=== PATIENT | female | born 1965 | race Caucasian/White ===

== ENCOUNTER 2016-11-27 10:59 | Observation (INO) | payer OTHER ==
[2016-11-27] VITALS (7 sets, daily range): BP systolic 128–154; BP diastolic 56–86; PULSE 83–124; RESP 16–20; TEMP 98.1–98.2; O2SAT 97–100
[~2016-11-27] VITALS: Ht 154.9 cm; Wt 50.0 kg
[2016-11-27] MEDS ORDERED: SODIUM CHLOR 0.9% 1000 ML INJ 1,000 ML IV SCH ×2 (11:36)
--- NOTE | 2016-11-27 11:39 | PD ---
HPI Chief Complaint: Psychiatric Symptoms Time Seen by Provider: 11:39 Travel History International Travel<30 days: No Contact w/Intl Traveler<30days: No Traveled to known affect area: No History of Present Illness HPI 51-year-old female with a history of pancreatitis, chronic pain, anxiety and depression presents to the emergency department for evaluation of abdominal pain , nausea, vomiting and diarrhea for 2 weeks. The patient states she is concerned that she is having another flareup of her pancreatitis. States that she previously was a heavy alcohol drinker which is what caused her pancreatitis but that she does not drink anymore. States that she's been unable to keep food or fluids down and has loose watery stools. She is also complaining of abdominal pain, generalized but worse in the left upper quadrant. Denies fever, chills, chest pain, shortness of breath, cough or cold symptoms, bloody stool, black stool. Prior abdominal surgeries include cholecystectomy and surgery for perforated gastric ulcer. She states she is typically taking medication for anxiety, insomnia and chronic pain however has been off of her medications for about 2 weeks because her doctor has not refilled them yet. PCP Dr. Sierra. She mentioned to nursing staff out front that something to the effect that she did not want to live anymore because she cannot sleep due to nausea and vomiting however she denies suicidal or homicidal ideations. PFSH Past Medical History Cancer: Yes (HX LEEP '94) Chest Pain: Yes (STATES HX OF NITRO SUBLINGUAL IN THE PAST) Diminished Hearing: No GERD: Yes Hiatal Hernia: Yes Psychiatric: Yes Immunizations Current: Yes Thyroid Disease: Yes (HYPOTHYROID) Menopausal: Yes : 4 Para: 4 Past Surgical History Section: Yes (1) Cholecystectomy: Yes Social History Alcohol Use: Yes (USUALY WEEKENDS 5 BEERS TONIGHT) Tobacco Use: Yes (1PPD) Substance Use: Yes (DRINKS BEER WHENEVER SHE HAS MONEY.) Allergies-Medications (Allergen,Severity, Reaction): Coded Allergies: Codeine (Verified Allergy, Unknown, Hives, 11/27/16) Reported Meds & Prescriptions Reported Meds & Active Scripts Active Review of Systems Except as stated in HPI: all other systems reviewed are Neg Physical Exam Narrative GENERAL: Well-nourished and well-developed female patient in no acute distress who is nontoxic appearing. SKIN: Warm and dry. HEAD: Normocephalic and atraumatic. EYES: No injection, drainage, or hyphema noted. PERRLA. EOMI. ENT: No nasal drainage noted. Oropharynx is clear. NECK: Supple and the trachea is midline. CARDIOVASCULAR: Regular rate and rhythm. RESPIRATORY: Breath sounds are equal bilaterally with no accessory muscle use, wheezing, rhonchi, or crackles. GASTROINTESTINAL: Generalized abdominal tenderness to palpation. No rebound tenderness or guarding. Abdomen is soft and nondistended. MUSCULOSKELETAL: No obvious deformities, swelling, cyanosis, or ecchymosis is present throughout the upper and lower extremities. Patient has full range of motion without any signs of neurovascular compromise. NEUROLOGICAL: Awake, alert, and oriented. Normal speech and gait. Cranial nerves are grossly intact. Data Data Last Documented VS Vital Signs Date Time Temp Pulse Resp B/P Pulse Ox O2 Delivery O2 Flow Rate FiO2 11/27/16 12:02 97 16 154/86 100 Room Air 11/27/16 11:01 98.2 Orders Complete Blood Count With Diff (11/27/16 11:36) Comprehensive Metabolic Panel (11/27/16 11:36) Lipase (11/27/16 11:36) Urinalysis - C+S If Indicated (11/27/16 11:36) Ct Abd/Pel W Iv Contrast(Rout) (11/27/16 11:36) Iv Access Insert/Monitor (11/27/16 11:36) Ecg Monitoring (11/27/16 11:36) Oximetry (11/27/16 11:36) Morphine Inj (Morphine Inj) (11/27/16 11:45) Ondansetron Inj (Zofran Inj) (11/27/16 11:45) Sodium Chlor 0.9% 1000 Ml Inj (Ns 1000 M (11/27/16 11:36) Sodium Chloride 0.9% Flush (Ns Flush) (11/27/16 11:45) Sodium Chlor 0.9% 1000 Ml Inj (Ns 1000 M (11/27/16 11:36) Ondansetron Inj (Zofran Inj) (11/27/16 13:15) Lorazepam Inj (Ativan Inj) (11/27/16 13:15) Iohexol 350 Inj (Omnipaque 350 Inj) (11/27/16 13:18) Admit Order (Ed Use Only) (11/27/16 14:07) Labs Laboratory Tests Test 11/27/16 11/27/16 11:30 11:40 White Blood Count 9.0 TH/MM3 Red Blood Count 5.05 MIL/MM3 Hemoglobin 16.0 GM/DL Hematocrit 46.9 % Mean Corpuscular Volume 92.7 FL Mean Corpuscular Hemoglobin 31.7 PG Mean Corpuscular Hemoglobin 34.2 % Concent Red Cell Distribution Width 13.8 % Platelet Count 344 TH/MM3 Mean Platelet Volume 8.9 FL Neutrophils (%) (Auto) 50.4 % Lymphocytes (%) (Auto) 42.3 % Monocytes (%) (Auto) 4.6 % Eosinophils (%) (Auto) 2.3 % Basophils (%) (Auto) 0.4 % Neutrophils # (Auto) 4.5 TH/MM3 Lymphocytes # (Auto) 3.8 TH/MM3 Monocytes # (Auto) 0.4 TH/MM3 Eosinophils # (Auto) 0.2 TH/MM3 Basophils # (Auto) 0.0 TH/MM3 CBC Comment DIFF FINAL Differential Comment Sodium Level 140 MEQ/L Potassium Level 3.6 MEQ/L Chloride Level 109 MEQ/L Carbon Dioxide Level 19.9 MEQ/L Anion Gap 11 MEQ/L Blood Urea Nitrogen 15 MG/DL Creatinine 0.71 MG/DL Estimat Glomerular Filtration 86 ML/MIN Rate Random Glucose 111 MG/DL Calcium Level 10.2 MG/DL Total Bilirubin 0.5 MG/DL Aspartate Amino Transf 32 U/L (AST/SGOT) Alanine Aminotransferase 104 U/L (ALT/SGPT) Alkaline Phosphatase 154 U/L Total Protein 7.7 GM/DL Albumin 4.7 GM/DL Lipase 424 U/L Urine Color YELLOW Urine Turbidity HAZY Urine pH 6.0 Urine Specific [place] GREATER THAN 1.050 Urine Protein 30 mg/dL Urine Glucose (UA) NEG mg/dL Urine Ketones 40 mg/dL Urine Occult Blood NEG Urine Nitrite NEG Urine Bilirubin NEG Urine Urobilinogen 4.0 MG/DL Urine Leukocyte Esterase TRACE Urine RBC 1 /hpf Urine WBC 5 /hpf Urine Squamous Epithelial 7 /hpf Cells Urine Bacteria OCC /hpf Urine Mucus MANY /lpf Microscopic Urinalysis Comment CULT NOT INDICATED MDM Medical Decision Making Medical Screen Exam Complete: Yes Emergency Medical Condition: Yes Differential Diagnosis Pancreatitis versus colitis versus gastroenteritis versus dehydration versus electrolyte abnormality versus opiate withdrawal Narrative Course 51-year-old female presents to the emergency department for evaluation of abdominal pain, nausea, vomiting and diarrhea for 2 weeks. Patient is afebrile. She is tachycardic with a heart rate of 124 bpm. Otherwise vital signs are within normal limits. She is reporting a history of pancreatitis and feels that this is a flareup of her pancreatitis. She also mentions she has been out of her oxycodone and anxiety medications for 2 weeks. She has generalized abdominal tenderness on examination however no peritoneal signs. IV access was obtained, labs were drawn and sent. Patient is placed on cardiac telemetry and pulse oximetry monitoring. Patient is measured IV fluids, Zofran and morphine. CBC shows elevated hemoglobin and hematocrit, likely secondary to hemoconcentration. CMP shows elevated LFTs and elevated lipase of 424. Urinalysis shows elevated specific gravity, 30 protein, 40 ketones, trace leukocyte esterase, occasional bacteria, many mucus. CT of the abdomen and pelvis shows mild prominence of the pancreatic duct measuring up to 4 mm with no definite stone or filling defect identified. There is no inflammatory change. Status post cholecystectomy with prominence of the intrahepatic and extrahepatic biliary system which may be a postsurgical finding. Mild and nonspecific nonobstructive bowel gas pattern which may represent a mild ileus and/or gastroenteritis. Moderate size hiatal hernia. Patient has required multiple doses of antiemetics. She still overall not feeling well. Her labs indicate that she is dehydrated. Patient will be admitted for intractable nausea, vomiting and abdominal pain in setting of chronic pancreatitis. I discussed the case with my attending physician Dr. Cherry who is aware of the patients history, physical examination findings, and treatment plan. Physician Communication Physician Communication I spoke with Dr. Raman resident who agrees to admit the patient to their service. Diagnosis Primary Impression: Intractable nausea and vomiting Qualified Code: R11.2 - Intractable vomiting with nausea, unspecified vomiting type Additional Impressions: Intractable abdominal pain Chronic pancreatitis Qualified Code: K86.1 - Chronic pancreatitis, unspecified pancreatitis type Mild dehydration Admitting Information Admitting Physician Requests: Kim Colby November 27, 2016 11:39
[2016-11-27] MEDS ORDERED: MORPHINE SULFATE 4 MG/ML INJ IV PUSH ONE (11:45)
[2016-11-27] MEDS ORDERED: SODIUM CHLORIDE 0.9% FLUSH 10 ML FLUSH IV FLUSH PRN ×2 (11:45→14:45)
[2016-11-27] MEDS ORDERED: ONDANSETRON HCL 4 MG/2 ML VIAL IVP ONE ×2 (11:45→13:15)
[2016-11-27 12:00] LABS: AUTOMATED NEUTROPHIL # 4.5 TH/MM3 (1.8-7.7); BASOPHIL % 0.4 % (0.0-2.0); EOSINOPHIL # 0.2 TH/MM3 (0-0.4); EOSINOPHIL % 2.3 % (0.0-4.0); HEMATOCRIT 46.9 % (35.0-46.0); HEMO FLAGS DIFF FINAL; LYMPH % 42.3 % (9.0-44.0); LYMPHOCYTE # 3.8 TH/MM3 (1.0-4.8); MEAN CELL VOLUME 92.7 FL (80.0-100.0); MEAN CORPUSCULAR HEMOGLOBIN 31.7 PG (27.0-34.0); MEAN CORPUSCULAR HGB CONC 34.2 % (32.0-36.0); MONO % 4.6 % (0.0-8.0); NEUT % 50.4 % (16.0-70.0); PLATELET COUNT 344 TH/MM3 (150-450); RED BLOOD COUNT 5.05 MIL/MM3 (4.00-5.30); RED CELL DISTRIBUTION WIDTH 13.8 % (11.6-17.2)
[2016-11-27 12:05] LABS: BACTERIA, URINE OCC /hpf; BLOOD, URINE NEG (NEG); COMMENT (UR) CULT NOT INDICATED; CULTURE IF INDICATED CULT NOT INDICATED; GLUCOSE,URINE NEG (NEG); KETONE, URINE 40 mg/dL (NEG); MUCUS URINE MANY /lpf (OCC); NITRITE,URINE NEG (NEG); SQUAMOUS EPITHELIAL CELL URINE 7 /hpf (0-5); URINE COLOR YELLOW (YELLW/STRAW)
[2016-11-27 12:19] LABS: ALT (GPT) 104 U/L (10-53); ANION GAP 11 MEQ/L (5-15); AST (GOT) 32 U/L (15-37); BICARBONATE 19.9 MEQ/L (21.0-32.0); BLOOD UREA NITROGEN 15 MG/DL (7-18); CHLORIDE 109 MEQ/L (98-107); GLOMERULAR FILTRATION RATE 86 ML/MIN (>89); POTASSIUM 3.6 MEQ/L (3.5-5.1); SODIUM (NA) 140 MEQ/L (136-145)
[2016-11-27 12:21] LABS: ALKALINE PHOSPHATASE 154 U/L (45-117); TOTAL BILIRUBIN ADULT 0.5 MG/DL (0.2-1.0)
[2016-11-27] MEDS ORDERED: LORazepam 2 MG/ML VIAL IV PUSH ONE (13:15)
[2016-11-27] MEDS ORDERED: IOHEXOL 350 MG/ML 10 ML VIAL (for RAD DIAG) IV ONE (13:18)
--- NOTE | 2016-11-27 13:45 | RADRPT ---
EXAM DATE/TIME: 11/27/2016 13:13 [facility] COMPARISON: No previous studies available for comparison. INDICATIONS : Patient complains of epigastric pain last 2 weeks with nausea. IV CONTRAST: 85 cc Omnipaque 350 (iohexol) IV ORAL CONTRAST: No oral contrast ingested. RADIATION DOSE: 9.96 CTDIvol (mGy) MEDICAL HISTORY : Pancreatitis. SURGICAL HISTORY : Cholecystectomy. ENCOUNTER: Initial ACUITY: 2 weeks PAIN SCALE: 6/10 LOCATION: Bilateral upper quadrant TECHNIQUE: Volumetric scanning of the abdomen and pelvis was performed. Using automated exposure control and ad justment of the mA and/or kV according to patient size, radiation dose was kept as low as reasonably achievable to obtain optimal diagnostic quality images. FINDINGS: LOWER LUNGS: The visualized lower lungs are clear. LIVER: Homogeneous density without lesion. The patient is status post cholecystectomy. There is mild promine nce of the intrahepatic and extrahepatic biliary system with no filling defects or mass identified. SPLEEN: Normal size without lesion. PANCREAS: Within normal limits. KIDNEYS: Normal in size and shape. There is no mass, stone or hydronephrosis. There is mild prominence of the pancreatic duct measuring up to 4 mm in diameter. There is no inflammatory change. ADRENAL GLANDS: Within normal limits. VASCULAR: There is no aortic aneurysm. BOWEL/MESENTERY: There is a moderate-sized hiatal hernia. There are multiple loops of nondilated air-containing small bowel several small air-fluid levels. There is no free air or fluid. Gas and stool are noted segmenta lly in the colon. No oral contrast was given limiting sensitivity. ABDOMINAL WALL: Within normal limits. RETROPERITONEUM: There is no lymphadenopathy. BLADDER: No wall thickening or mass. REPRODUCTIVE: Within normal limits. INGUINAL: There is no lymphadenopathy or hernia. MUSCULOSKELETAL: Within normal limits for patient age. CONCLUSION: 1. Mild prominence of the pancreatic duct measuring up to 4 mm with no definite stone or filling defe ct identified. There is no inflammatory change. 2. Status post cholecystectomy with prominence of the intrahepatic and extrahepatic Biliary system wh ich may be a postsurgical finding. 3. Mild and nonspecific, nonobstructive bowel gas pattern which may represent a mild ileus and/or gas troenteritis. 4. Moderate size hiatal hernia. Ravindra Styles MD on November 27, 2016 at 13:41 Board Certified Radiologist. This report was verified electronically.
--- NOTE | 2016-11-27 14:34 | HHI.HP ---
[facility] Service Family Medicine Primary Care Physician Miya Sierra MD Admission Diagnosis Intractable N/V, Intractable Abd Pain, Dehydration Diagnoses: International Travel<30 Days: No Contact w/Intl Traveler<30days: No Known Affected Area: No History of Present Illness Of note she is a very poor historian This a 51-year-old female with an extensive past mental history significant for pancreatitis, diverticulitis, hiatal hernia, chronic pain and anxiety and depression. She is presented for a 2 week history of nausea, vomiting, diarrhea and abdominal pain. She says that to half weeks ago she ran out of her pain meds and her PCP has not ordered her new ones. She feels that she started going through withdrawal at this point the withdrawals in her mind are over and now she is having an episode of her pancreatitis. She says that she is having difficulty eating or drinking anything. Her diarrhea stopped because she's been unable to eat for the last few days. She also has been unable to sleep at this timeframe. She feels like her muscles and bones ache all over her body. Her abdominal pain is mostly in her epigastric region. She says that morphine does not help with her pain but that Dilaudid does. She feels that the abdominal pain does worsen with eating. Patient had this time the stomach is were most her pain is located. She takes opiates consistently for her chronic bone pain. Denies any homicidal or suicidal ideation. Of note she claims to have no longer drink in many years Her PCP is Dr. Sierra who is currently managing her pain meds. (Turner Raman MD R2) Review of Systems Constitutional: COMPLAINS OF: Fatigue, Fever, Chills, Dizziness, Change in appetite (decreased), DENIES: Weight loss Endocrine: DENIES: Polyuria Eyes: DENIES: Diplopia, Double Vision Ears, nose, mouth, throat: DENIES: Hearing loss, Oral lesions, Throat pain, Hoarseness, Sinus Pain Respiratory: DENIES: Cough, Sputum production, Shortness of breath Cardiovascular: DENIES: Chest pain, Lower Extremity Edema Gastrointestinal: COMPLAINS OF: Abdominal pain, Diarrhea, Nausea, Vomiting, Anorexia, DENIES: Black stools, Bloody stools Genitourinary: DENIES: Dyspareunia, Urinary frequency, Dysuria Musculoskeletal: COMPLAINS OF: Joint pain, Muscle aches, Back pain, Neck pain Integumentary: DENIES: Abnormal pigmentation Hematologic/lymphatic: DENIES: Bruising Neurologic: COMPLAINS OF: Headache, DENIES: Abnormal gait, Seizures, Poor Balance Psychiatric: COMPLAINS OF: Anxiety, Depression, DENIES: Confusion (Turner Raman MD R2) Past Family Social History Past Medical History Pancreatitis Diverticulitits Hiatl hernia Migraines Chronic Pain Opiate dependence perforated ulcer Past Surgical History Ankle repair cholecystectomy wrist repair Reported Medications Reported Meds & Active Scripts Active (Turner Raman MD R2) Allergies: Coded Allergies: Codeine (Verified Allergy, Unknown, Hives, 11/27/16) Family History noncontributory Social History Live in [place] in a mobile home, with her boyfriend On Disability Have a dog Smoke a pack a day since 12 Quit drinking in 2003 Marijuana occasionally (Turner Raman MD R2) Physical Exam Vital Signs Vital Signs Date Time Temp Pulse Resp B/P Pulse Ox O2 Delivery O2 Flow Rate FiO2 11/27/16 12:02 97 16 154/86 100 Room Air 11/27/16 11:01 98.2 124 20 129/56 97 Physical Exam GENERAL: This is a well-nourished, well-developed patient, appears older than stated age in no apparent distress. SKIN: No rashes, ecchymoses or lesions. Cool and dry. HEAD: Atraumatic. Normocephalic. No temporal or scalp tenderness. EYES: Pupils equal round and reactive. Extraocular motions intact. No scleral icterus. No injection or drainage. ENT: Nose without bleeding, purulent drainage or septal hematoma. Throat without erythema, tonsillar hypertrophy or exudate. Uvula midline. Airway patent. Missing all of her teeth NECK: Trachea midline. No JVD or lymphadenopathy. Supple, nontender, no meningeal signs. CARDIOVASCULAR: Regular rate and rhythm without murmurs, gallops, or rubs. RESPIRATORY: Clear to auscultation. Breath sounds equal bilaterally. No wheezes , rales, or rhonchi. GASTROINTESTINAL: Abdomen soft, tender to palpation in epigastric region, nondistended. No rebound tenderness or guarding. No hepato-splenomegaly, or palpable masses. MUSCULOSKELETAL: Extremities without clubbing, cyanosis, or edema. No joint tenderness, effusion, or edema noted. No calf tenderness. Negative Homans sign bilaterally. NEUROLOGICAL: Awake and alert. Cranial nerves II through XII grossly intact. Motor and sensory grossly within normal limits. Normal speech. Laboratory Laboratory Tests Test 11/27/16 11/27/16 11:30 11:40 White Blood Count 9.0 Red Blood Count 5.05 Hemoglobin 16.0 Hematocrit 46.9 Mean Corpuscular Volume 92.7 Mean Corpuscular Hemoglobin 31.7 Mean Corpuscular Hemoglobin 34.2 Concent Red Cell Distribution Width 13.8 Platelet Count 344 Mean Platelet Volume 8.9 Neutrophils (%) (Auto) 50.4 Lymphocytes (%) (Auto) 42.3 Monocytes (%) (Auto) 4.6 Eosinophils (%) (Auto) 2.3 Basophils (%) (Auto) 0.4 Neutrophils # (Auto) 4.5 Lymphocytes # (Auto) 3.8 Monocytes # (Auto) 0.4 Eosinophils # (Auto) 0.2 Basophils # (Auto) 0.0 CBC Comment DIFF FINAL Differential Comment Sodium Level 140 Potassium Level 3.6 Chloride Level 109 Carbon Dioxide Level 19.9 Anion Gap 11 Blood Urea Nitrogen 15 Creatinine 0.71 Estimat Glomerular Filtration 86 Rate Random Glucose 111 Calcium Level 10.2 Total Bilirubin 0.5 Aspartate Amino Transf 32 (AST/SGOT) Alanine Aminotransferase 104 (ALT/SGPT) Alkaline Phosphatase 154 Total Protein 7.7 Albumin 4.7 Lipase 424 Urine Color YELLOW Urine Turbidity HAZY Urine pH 6.0 Urine Specific [place] GREATER THAN 1.050 Urine Protein 30 Urine Glucose (UA) NEG Urine Ketones 40 Urine Occult Blood NEG Urine Nitrite NEG Urine Bilirubin NEG Urine Urobilinogen 4.0 Urine Leukocyte Esterase TRACE Urine RBC 1 Urine WBC 5 Urine Squamous Epithelial 7 Cells Urine Bacteria OCC Urine Mucus MANY Microscopic Urinalysis Comment CULT NOT INDICATED (Turner Raman MD R2) Result Diagram: 11/27/16 1130 11/27/16 1130 Imaging Last Impressions Abdomen/Pelvis CT 11/27/16 1136 Signed Impressions: Service Date/Time: Sunday, November 27, 2016 13:13 - CONCLUSION: 1. Mild prominence of the pancreatic duct measuring up to 4 mm with no definite stone or filling defect identified. There is no inflammatory change. 2. Status post cholecystectomy with prominence of the intrahepatic and extrahepatic Biliary system which may be a postsurgical finding. 3. Mild and nonspecific, nonobstructive bowel gas pattern which may represent a mild ileus and/or gastroenteritis. 4. Moderate size hiatal hernia. Ravindra Styles MD (Turner Raman MD R2) Assessment and Plan Assessment and Plan This a 51-year-old female with an extensive past mental history significant for pancreatitis, diverticulitis, hiatal hernia, chronic pain and anxiety and depression. Being admitted for intractable vomiting and abdominal pain and UTI Code Status DNR Discussed Condition With wdw: Dr. Rich (Turner Raman MD R2) Attending Attestation THIS CASE WAS DISCUSSED WITH THE RESIDENT PHYSICIAN. I HAVE REVIEWED THE RECORD AND AGREE WITH THE ABOVE NOTE AND PLAN OF CARE WAS DISCUSSED. I HAVE AUTHORIZED THE ORDER FOR PLACEMENT IN OUT-PATIENT OBSERVATION STATUS. (Leo Rich MD) Problem List: (1) Intractable abdominal pain Status: Acute Plan: Patient is being admitted for intractable abdominal pain. She is on chronic opiates. Has been without her medications for treatment of weeks. Abdominal pain is likely due to withdrawal versus mild pancreatitis. Status post bolus 2. Lipase is mildly elevated at 424 * Admit to observation * Placed on CIWA protocol * Rally pack by mouth * IV fluids at 125 MLS per hour * Diet nothing by mouth * Dilaudid 1 mg IV every 4 hours when necessary pain 1-10 we'll transition to by mouth tomorrow (2) Intractable nausea and vomiting Status: Acute Plan: Patient is reporting intractable nausea and vomiting. She feels better with Zofran. * Zofran 4 mg IV every X hours when necessary nausea or vomiting * CBC, BMP ordered for the a.m. (3) Chronic pancreatitis Status: Acute Plan: Patient reports a history of chronic pancreatitis. * See plans above (4) Mild dehydration Status: Acute Plan: See fluid above (5) UTI (urinary tract infection) Status: Acute Plan: UA concerning for a urinary tract infection. She is afebrile white blood cell count is 9.0 * Ceftriaxone 1 g IV every 12 hours * Urine cultures pending (6) Nutrition, metabolism, and development symptoms Status: Acute Plan: Diet: Nothing by mouth we'll start diet as tolerated Fluids: IV 125 MLS per hour status post bolus 2 Out of bed ad chris. Vitals every 4 Monitor electrolytes replace accordingly Monitor I's and O's DVT prophylaxis with heparin and SCDs CODE STATUS: Full code Disposition: Improvement of abdominal pain and nausea vomiting resolution of dehydration (Turner Raman MD R2) Problem Qualifiers (1) Intractable nausea and vomiting: Qualified Code: R11.2 - Intractable vomiting with nausea, unspecified vomiting type (2) Chronic pancreatitis: Qualified Code: K86.1 - Chronic pancreatitis, unspecified pancreatitis type (3) UTI (urinary tract infection): Qualified Code: N30.00 - Acute cystitis without hematuria Turner Raman MD R2 November 27, 2016 14:34 Leo Rich MD November 28, 2016 17:54
[2016-11-27] MEDS ORDERED: ONDANSETRON HCL 4 MG/2 ML VIAL IV PRN (14:45)
[2016-11-27] MEDS ORDERED: MAGNESIUM HYDROXIDE SUSP 30 ML CUP PO PRN (15:00)
[2016-11-27] MEDS ORDERED: TEMAZEPAM 15 MG CAP PO PRN (15:00)
[2016-11-27] MEDS ORDERED: LORazepam 2 MG/ML VIAL IV PUSH PRN ×4 (15:00)
[2016-11-27] MEDS ORDERED: LORazepam 1 MG TAB PO PRN (15:00)
[2016-11-27] MEDS ORDERED: LORazepam 2 MG TAB PO PRN (15:00)
[2016-11-27] MEDS ORDERED: FLUMAZENIL 0.5 MG/5 ML VIAL IV PUSH PRN (15:00)
[2016-11-27] MEDS ORDERED: NALOXONE HCL 0.4 MG/ML AMP IV PRN (15:00)
[2016-11-27] MEDS: HEPARIN SODIUM - SQ 10,000 UNITS/ML VIAL SQ SCH (15:29)
[2016-11-27] MEDS: SODIUM CHLOR 0.9% 1000 ML INJ 1,000 ML IV SCH ×2 (15:29→23:30)
[2016-11-27] MEDS: HYDROmorphone HCL PF 1 MG/ML VIAL IV PRN ×2 (15:30→20:52)
[2016-11-27] MEDS ORDERED: cefTRIAXone INJ 1,000 MG in SODIUM CHLORIDE 0.9% INJ 100 ML IV SCH (16:00)
[2016-11-27] MEDS: NICOTINE 21 MG/24 HR PATCH T-DERMAL SCH (18:21)
[2016-11-27] MEDS: SODIUM CHLORIDE 0.9% FLUSH 10 ML FLUSH IV FLUSH SCH (20:52)
[2016-11-27] MEDS: REMOVE OLD PATCH T-DERMAL SCH (21:00)
[2016-11-28] MEDS: HEPARIN SODIUM - SQ 10,000 UNITS/ML VIAL SQ SCH ×2 (00:37→08:12)
[2016-11-28] MEDS: HYDROmorphone HCL PF 1 MG/ML VIAL IV PRN ×2 (01:24→06:43)
[2016-11-28 03:15] VITALS: BP 105/78; PULSE 86; RESP 17; TEMP 97.9; O2SAT 97
[2016-11-28] MEDS ORDERED: HYDROmorphone HCL PF 1 MG/ML VIAL IV PRN (07:15)
[2016-11-28] MEDS ORDERED: ACETAMINOPHEN/HYDROcodone 325 MG/10 MG TAB PO PRN (07:15)
[2016-11-28] MEDS ORDERED: ACETAMINOPHEN/HYDROcodone 325 MG/5 MG TAB PO PRN (07:15)
[2016-11-28 07:26] LABS: AUTOMATED NEUTROPHIL # 1.9 TH/MM3 (1.8-7.7); BASOPHIL % 0.7 % (0.0-2.0); EOSINOPHIL # 0.3 TH/MM3 (0-0.4); EOSINOPHIL % 4.2 % (0.0-4.0); HEMATOCRIT 36.7 % (35.0-46.0); LYMPH % 59.4 % (9.0-44.0); LYMPHOCYTE # 3.6 TH/MM3 (1.0-4.8); MEAN CELL VOLUME 92.2 FL (80.0-100.0); MEAN CORPUSCULAR HEMOGLOBIN 31.7 PG (27.0-34.0); MEAN CORPUSCULAR HGB CONC 34.4 % (32.0-36.0); MONO % 4.9 % (0.0-8.0); NEUT % 30.8 % (16.0-70.0); PLATELET COUNT 258 TH/MM3 (150-450); RED BLOOD COUNT 3.98 MIL/MM3 (4.00-5.30); RED CELL DISTRIBUTION WIDTH 13.5 % (11.6-17.2); WHITE BLOOD COUNT 6.1 TH/MM3 (4.0-11.0)
[2016-11-28 07:28] LABS: HEMO FLAGS AUTO DIFF
[2016-11-28 08:05] LABS: BICARBONATE 24.1 MEQ/L (21.0-32.0); POTASSIUM 3.3 MEQ/L (3.5-5.1)
[2016-11-28] MEDS: NICOTINE 21 MG/24 HR PATCH T-DERMAL SCH (08:12)
[2016-11-28 08:13] LABS: SCAN/DIFF AUTO DIFF CONFIRMED
[2016-11-28] MEDS: SODIUM CHLOR 0.9% 1000 ML INJ 1,000 ML IV SCH (08:17)
[2016-11-28 08:24] VITALS: BP 116/72; PULSE 83; RESP 16; TEMP 97.8; O2SAT 98
--- NOTE | 2016-11-28 08:28 | HHI.FPPN ---
Subjective Remarks FM Attending Note: Patient seen and examined. S: Chart and all resident physician notes reviewed. In summary this is a 51 year old female who was admitted with an admission diagnosis of Intractable N/V , Intractable Abd Pain, Dehydration. This patient has been on chronic narcotic medication for chronic pain. She reports that she recently was unable to obtain a refill of her pain medication due to scheduling difficulties with her physician. She developed nausea vomiting and abdominal pain which appears to be secondary to withdrawal symptoms. This morning she notes that she is feeling better. She has some mild soreness of her abdomen but no further nausea or vomiting. She did have a CT scan of her abdomen which showed some minor abnormalities but no acute significant findings were noted. Objective Vitals Vital Signs Date Time Temp Pulse Resp B/P Pulse Ox O2 Delivery O2 Flow Rate FiO2 11/28/16 08:24 97.8 83 16 116/72 98 11/28/16 03:15 97.9 86 17 105/78 97 11/27/16 23:46 98.1 83 17 136/61 99 11/27/16 21:25 98 11/27/16 19:49 98.2 87 18 128/85 11/27/16 16:22 77 16 133/65 100 11/27/16 16:00 16 11/27/16 15:05 91 16 137/67 97 Room Air 11/27/16 12:02 97 16 154/86 100 Room Air 11/27/16 11:01 98.2 124 20 129/56 97 Result Diagram: 11/28/16 0655 11/28/16 0655 Other Results Item Value Date Time Total Bilirubin 0.5 MG/DL 11/27/16 1130 Aspartate Amino Transf (AST/SGOT) 32 U/L 11/27/16 1130 Alanine Aminotransferase (ALT/SGPT) 104 U/L H 11/27/16 1130 Alkaline Phosphatase 154 U/L H 11/27/16 1130 Lipase 424 U/L H 11/27/16 1130 Lipase 368 U/L 11/28/16 0655 Urine Specific [place] GREATER THAN 1.050 H 11/27/16 1140 Urine Nitrite NEG 11/27/16 1140 Urine Leukocyte Esterase TRACE H 11/27/16 1140 Urine RBC 1 /hpf 11/27/16 1140 Urine WBC 5 /hpf 11/27/16 1140 Imaging Last 48 hours Impressions Abdomen/Pelvis CT 11/27/16 1136 Signed Impressions: Service Date/Time: Sunday, November 27, 2016 13:13 - CONCLUSION: 1. Mild prominence of the pancreatic duct measuring up to 4 mm with no definite stone or filling defect identified. There is no inflammatory change. 2. Status post cholecystectomy with prominence of the intrahepatic and extrahepatic Biliary system which may be a postsurgical finding. 3. Mild and nonspecific, nonobstructive bowel gas pattern which may represent a mild ileus and/or gastroenteritis. 4. Moderate size hiatal hernia. Ravindra Styles MD Objective Remarks O. CONSTITUTIONAL/GEN: normally nourished, in NAD. EYES: conjunctiva normal, PERRLA, EOMI. LUNGS: clear A-P, respiratory effort is normal. CARDIOVASCULAR: RR without murmur or gallop. No significant edema. GI/ABD: soft without masses, without organomegaly. NEURO: No focal deficits. SKIN: color normal, no rashes noted. HEME/LYMPH: no bruising, petechia or significant adenopathy MUSC: back is normal in appearance. Extremities are normal in appearance. PSYCH/MENTAL STATUS: Alert and oriented x 3. A/P Assessment and Plan This a 51-year-old female with an extensive past mental history significant for pancreatitis, diverticulitis, hiatal hernia, chronic pain and anxiety and depression. Being admitted for intractable vomiting and abdominal pain and UTI Problem List: (1) Intractable abdominal pain Status: Acute Plan: Patient is being admitted for intractable abdominal pain. She is on chronic opiates. Has been without her medications for treatment of weeks. Abdominal pain is likely due to withdrawal versus mild pancreatitis. Status post bolus 2. Lipase is mildly elevated at 424 * Admit to observation * Placed on CIWA protocol * Rally pack by mouth * IV fluids at 125 MLS per hour * Diet nothing by mouth * Dilaudid 1 mg IV every 4 hours when necessary pain 1-10 we'll transition to by mouth tomorrow 11/28/16 At the current time the patient's acute abdominal pain with nausea and vomiting has resolved. The most likely etiology is acute withdrawal symptoms from chronic narcotic med use. We'll plan on discharging patient back to the care of her primary physician. We will give her a refill of her oxycodone 15 mg to be taken twice daily (review of her med list is somewhat confusing regarding her dosing which could be up to QID). We will give her 30 tablets which should last 2 weeks until her follow-up appointment with her physician. She also has chronic anxiety for which she has been using a short acting benzodiazepine. We will give her a prescription for clonazepam 1 mg to be taken once daily as needed for anxiety. (2) Intractable nausea and vomiting Status: Acute Plan: Patient is reporting intractable nausea and vomiting. She feels better with Zofran. * Zofran 4 mg IV every X hours when necessary nausea or vomiting * CBC, BMP ordered for the a.m. (3) Chronic pancreatitis Status: Acute Plan: Patient reports a history of chronic pancreatitis. * See plans above 11/28/16 Mild initial elevation of lipase which is decreasing at the present time. (4) Mild dehydration Status: Acute Plan: See fluid above (5) UTI (urinary tract infection) Status: Acute Plan: UA concerning for a urinary tract infection. She is afebrile white blood cell count is 9.0 * Ceftriaxone 1 g IV every 12 hours * Urine cultures pending (6) Nutrition, metabolism, and development symptoms Status: Acute Plan: Diet: Nothing by mouth we'll start diet as tolerated Fluids: IV 125 MLS per hour status post bolus 2 Out of bed ad chris. Vitals every 4 Monitor electrolytes replace accordingly Monitor I's and O's DVT prophylaxis with heparin and SCDs CODE STATUS: Full code Disposition: Improvement of abdominal pain and nausea vomiting resolution of dehydration Problem Qualifiers (1) Intractable nausea and vomiting: Qualified Code: R11.2 - Intractable vomiting with nausea, unspecified vomiting type (2) Chronic pancreatitis: Qualified Code: K86.1 - Chronic pancreatitis, unspecified pancreatitis type (3) UTI (urinary tract infection): Qualified Code: N30.00 - Acute cystitis without hematuria Leo Rich MD November 28, 2016 08:27
--- NOTE | 2016-11-28 08:43 | HHI.DCPOC ---
Discharge Care Plan Diagnosis: (1) Intractable nausea and vomiting (2) Intractable abdominal pain (3) Chronic pancreatitis (4) Opiate withdrawal Goals to Promote Your Health * To prevent worsening of your condition and complications * To maintain your health at the optimal level Directions to Meet Your Goals Take your medications as prescribed Follow your dietary instruction Follow activity as directed Keep your appointments as scheduled Take your immunizations and boosters as scheduled If your symptoms worsen call your PCP, if no PCP go to Urgent Care Center or Emergency Room Smoking is Dangerous to Your Health. Avoid second hand smoke Call the 24-hour hour crisis hotline for domestic abuse at Isela Nielson MD November 28, 2016 08:43
[2016-11-28] MEDS ORDERED: MULTIVITAMINS/MINERALS THERAPEUTIC TAB PO SCH (09:00)
[2016-11-28] MEDS ORDERED: THIAMINE HCL 100 MG TAB PO SCH (09:00)
[2016-11-28] MEDS: SODIUM CHLORIDE 0.9% FLUSH 10 ML FLUSH IV FLUSH SCH (09:00)
[2016-11-28] MEDS ORDERED: FOLIC ACID 1 MG TAB PO SCH (09:00)
[2016-11-28] MEDS ORDERED: PNEUMOCOCCAL POLYVALENT INJ 25 MCG/0.5 ML SYR IM ONE (10:00)
[2016-11-28] MEDS ORDERED: OXYC15TA PO ×2 (10:11→10:15)
[2016-11-28] MEDS ORDERED: CLON1TAB PO (10:16)
[2016-11-28] MEDS ORDERED: TRAZ150T75 PO (12:06)
[2016-11-28] MEDS ORDERED: ZOFR4TAB PO (12:06)
[2016-11-28] MEDS ORDERED: MECL-62 PO (12:06)
[2016-11-28] MEDS ORDERED: SYMB160A INH (12:06)
[2016-11-28] MEDS ORDERED: XANA1TAB2 PO (12:06)
[2016-11-28] MEDS ORDERED: AMBI10TA PO (12:06)
[2016-11-28] MEDS ORDERED: IMIT25TA PO (12:06)
[2016-11-28] MEDS ORDERED: DICY10 PO (12:06)
[2016-11-28] MEDS ORDERED: LEVO.1 PO (12:06)
[2016-11-28] MEDS ORDERED: VIST25CA PO (12:06)
--- NOTE | 2016-11-28 14:40 | PD.AMA ---
Against Medical Advice Note Discharge Disposition: Against Medical Advice Pt Condition on Discharge: Stable AMA Statement Patient Delilah Kirk has decided to leave the hospital against medical advice. This patient has the capacity to refuse care and understands the risks of leaving, including permanent disability and/or , and has had an opportunity to ask questions about her condition. The patient has been informed that she may return for [facility] at anytime but should not be admitted to the Family Medicine Team. Marcella Ortez MD R1 November 28, 2016 14:40
== END 2016-11-28 15:01 | disposition left against medical advice (07) ==
LOC: NEPD 10:59 → NEDA 14:12 → NEPGCP 16:37
PROVIDERS: ADMIT Family Medicine; ATTEND Family Medicine
DX: R10.9 Unspecified abdominal pain (principal); R11.2 Nausea with vomiting, unspecified; K86.1 Other chronic pancreatitis; N39.0 Urinary tract infection, site not specified; F41.9 Anxiety disorder, unspecified; F32.9 Major depressive disorder, single episode, unspecified; F17.200 Nicotine dependence, unspecified, uncomplicated; E86.0 Dehydration; R74.8 Abnormal levels of other serum enzymes; Z90.49 Acquired absence of other specified parts of digestive tract; Z88.5 Allergy status to narcotic agent; Z66 Do not resuscitate; Z79.891 Long term (current) use of opiate analgesic
CPT/HCPCS: 74177; 80048; 80053; 81001; 83690; 85025; 90732; 96361; 96374; 96375; 96376; 99285; G0378; J0696; J1170; J1644; J2060; J2270; J2405; J7030; Q9967